=== PATIENT | female | born 1985 | race Caucasian/White ===

== ENCOUNTER 2023-08-18 08:44 | Outpatient (CLI) | payer OTHER, SELFPAY ==
--- NOTE | ~2023-08-18 | US_ITS ---
EXAMINATION: US pelvic complete DATE: 08/18/2023 09:12 INDICATION: Lower abdominal pain. History of cysts. Comparison:No prior studies for comparison. TECHNIQUE: Multiple transabdominal sonographic images of the pelvis performed. FINDINGS: The uterus measures 7.2 x 4.6 x 3.2 cm. The endometrial complex measures 5 mm. The right ovary measures 2.4 x 1.5 x 1.9 cm and the left ovary measures 1.2 x 1.2 x 1.9 cm. There ar e small follicles in each ovary. Normal doppler signal in both ovaries. There is no free fluid in the pelvis. There are no abnormal masses seen on either side. IMPRESSION: 1. Unremarkable pelvic ultrasound. Reviewed, dictated and finalized at location A.
== END 2023-08-18 08:45 ==
PROVIDERS: PCP Hospitalist
DX: R10.30 Lower abdominal pain, unspecified (principal)
CPT/HCPCS: 76856

== ENCOUNTER 2023-12-22 14:43 | Outpatient (CLI) | payer OTHER, SELFPAY ==
--- NOTE | ~2023-12-22 | MM_ITS ---
EXAMINATION: MM screening indira BI w patience HISTORY: Screening TECHNIQUE: Craniocaudal and mediolateral oblique 3-D tomosynthesis images were obtained and synthetic 2-D images were generated. CAD analysis was submitted and interpreted. COMPARISON: No prior mammogram is available for comparison at this institution. BREAST PARENCHYMAL COMPOSITION: There are scattered areas of fibroglandular density. FINDINGS: There is no evidence of suspicious mass, calcification, or architectural distortion to sugg est malignancy in either breast. There has been no suspicious interval change. IMPRESSION: 1. No mammographic evidence of malignancy. 2. Recommend routine screening mammography in one year. BI-RADS Category 1: Negative Reviewed, dictated and finalized at location B.
== END 2023-12-22 14:44 ==
LOC: MICIMG 14:43
PROVIDERS: PCP Hospitalist
DX: Z12.31 Encounter for screening mammogram for malignant neoplasm of breast (principal)
CPT/HCPCS: 77063; 77067

== ENCOUNTER 2024-12-24 14:42 | Outpatient (CLI) | payer OTHER, SELFPAY ==
--- NOTE | ~2024-12-24 | MM_ITS ---
EXAMINATION: MM screening indira BI w patience HISTORY: Screening TECHNIQUE: Craniocaudal and mediolateral oblique 3-D tomosynthesis images were obtained and synthetic 2-D images were generated. CAD analysis was submitted and interpreted. COMPARISON: 12/22/2023. BREAST PARENCHYMAL COMPOSITION: There are scattered areas of fibroglandular density. FINDINGS: There is no evidence of suspicious mass, calcification, or architectural distortion to suggest malignancy in either breast. IMPRESSION: 1. No mammographic evidence of malignancy. 2. Recommend routine screening mammography in one year. BI-RADS Category 1: Negative Reviewed, dictated and finalized at location B.
--- OUTSIDE RECORDS SUMMARY | 2024-12-24 15:00 | XMS_ITS | Clinical Summary ---
Author Organization [facility] Address [address] [place] [address] Care Team Providers Care Environmental Programs Specialist Name Role Phone Ross De Jesus MD Primary Care Provider Source Comments [facility],non-owned Affiliates and Associated Physician Practices is amultiple site organization consisting of ambulatory clinics and hospital sitesin [place], [place], [place] and [place]. This disclosure is being madepursuant to the Care Everywhere program and may not contain all information available regarding this patient. Last updated 18.[facility] Allergies No known active allergies Medications * Be aware that medications may not be up to date on this document. Alwaysverify current medications with the patient. No known medications Family History Medical History Relation Name Comments Hypertension Mother Relation Name Status Comments Mother Social History Tobacco Use Types Packs/Day Years Used Date Smoking Tobacco: Former Cigarettes Smokeless Tobacco: Never Tobacco Cessation:Ready to Q uit: No; Counseling Given: Yes Comments No Sex and Gender Information Value Date Recorded Sex Assigned at Not on file Legal Sex Female 12:02 PM CDT Gender Identity Not on file Sexual Orientation Not on file Last Filed Vital Signs Vital Sign Reading Time Taken Comments Blood Pressure 120/82 06/12/2019 12:05 PM PERSONAL CARE ASSISTANT Pulse 95 06/12/2019 12:05 PM PERSONAL CARE ASSISTANT Temperature 37.5 C (99.5 F) 06/12/2019 12:05 PM PERSONAL CARE ASSISTANT Respiratory Rate 16 06/12/2019 12:05 PM PERSONAL CARE ASSISTANT Oxygen Saturation 99% 06/12/2019 12:05 PM PERSONAL CARE ASSISTANT Inhaled Oxygen Concentration - - Weight 72.6 kg (160 lb) 06/12/2019 12:05 PM PERSONAL CARE ASSISTANT Height 162.6 cm (5' 4) 06/12/2019 12:05 PM PERSONAL CARE ASSISTANT Body Mass Index 27.46 06/12/2019 12:05 PM PERSONAL CARE ASSISTANT Plan of Treatment Health Maintenance Due Date Last Done Comments LIPID TESTING 1983 MAMMOGRAM 1983 HIV SCREENING 1998 HEPATITIS C SCREENING 02/26/2001 DTAP/TDAP/TD VACCINES (1 - Tdap) 2002 HEPATITIS B VACCINE (1 of 3 - 19+ 3-dose series) 2002 HPV VACCINE (1 - 3-dose SCDM series) 2010 COVID-19 VACCINE (1 - 2023-2 5 season) 2024 DEPRESSION SCREENING 05/02/2024 INFLUENZA VACCINE (#1) 2024 ZOSTER VACCINE (1 of 2) 2033 HIB VACCINE Aged Out No longer eligi ble based on patient's age to complete this topic MENINGOCOCCAL (Group B) VACC INE SHARED DECISION-MAKING Aged Out No longer eligibl e based on patient's age to complete this topic MENINGOCOCCAL GROUPS A/C/Y/W VACCINE Aged Out No longer eligible b ased on patient's age to complete this topic PNEUMOCOCCAL VACCINE Aged Out No long er eligible based on patient's age to complete this topic Insurance [facility] Care Teams Environmental Programs Specialist Relationship Specialty Start Date End Date Ross De Jesus MD [address] [place] [address] PCP - General Family Medicine 06/12/19
--- OUTSIDE RECORDS SUMMARY | 2024-12-24 15:00 | XMS_ITS | Clinical Summary ---
Author Organization [facility] Address [address] [place] [address] Care Team Providers Care Junior Net Developer Name Role Phone Sean Stone MD Primary Care Provider [phone] Allergies No known active allergies Medications hydrocortisone 2.5 % cream Apply topically 2 (two) times a day as needed for irritation or rash 90 g 4 Active Active Problems Problem Noted Date Diagnosed Date Bilateral hand numbness 03/20/2024 Other hemorrhoids 02/07/2024 Assessment & Plan (02/07/2024 4:05 PM CDT): Patient reports some symptomatic hemorrhoids without significant bleeding; mostly pain and itching; difficulty with sitting and walking Some straining x1 week Would encourage use of laxatives, continue hydrocortisone 2.5% p.r.n. for symptoms Encounter for colonoscopy du e to history of adenomatous colonic polyps 08/31/2023 Lower abdominal pain 08/16/2023 Assessment & Plan (08/16/2023 3:21 PM CDT): Ongoing low back and pelvic pain Hx of ovarian cysts CT abd/pelvis negative Pelvic US ordered Cyst of ovary 11/10/2021 Diverticulitis 09/20/2018 Assessment & Plan (01/25/2023 9:06 AM CDT): Well controlled; no recent flares of diverticulitis; no further evidence of intra-abdominal abscesses Continue to monitor Postprocedural intraabdominal abscess 08/30/2018 Overview (08/30/2018): Transfer from [facility] for management of a [id number] intra-abdominal abscess. Reports atraumatic, insidious onset of abd pain 10 days ago, progressively worsening. Assessment & Plan (09/14/2018 3:38 PM CDT): Resolving intra-abdominal fluid collection in the pelvis. 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 Last admission her VIR culture grew E-coli and she received cipro/flagyl at discharge. -WBC 9.4 - No antibiotics -VIR consulted 09/14 exchanged abscess drain, moderate amount of fluid remained in the collection. Planning VIR and ACCS follow up on 09/20/18. No antibiotics needed this admission. Abdominal pain resolved prior to discharge and was tolerating a diet. Assessment & Plan (09/05/2018 10:27 AM CDT): Ct abdomen/pelvis 08/28/18: Large complex fluid collection in the lesser sac measuring 11 x10 x 13.7 cm consistent with a large abscess. This may be result of a contained perforation of the stomach or transverse colon. 14 mm high attenuation focus in the hepatic flexure is suspicious for a site of active gastrointestinal bleeding. -IR consult placed for possible percutaneous drain placement -Continue IV Zosyn -UGI/Small bowel follow through 08/31: Mild narrowing at the 3rd portion of the duodenum likely secondary to inflammation/mass effect from the abdominal fluid collection without evidence of gastric or small bowel perforation or leak. -- drain amylase >[id number], IR not interested in drain study, they suggested water soluble enema followed by barium enema. IR placed drain which drained approximate volume of 250 mL at the time of the procedure. The fluid appeared brown and was malodorous - Drain put out approx 300ml over night; brownish output Successful image guided drainage of central abdominal fluid collection --This tube should flushed with 10 mL of saline twice daily --Cultures: Abundant Gram Positive Bacilli Moderate Gram Negative Bacilli Rare Gram Positive Cocci Report Preliminary Report: Moderate Escherichia coli Continuing zosyn at this time 08/31 UGI/SBFT: Mild narrowing at the 3rd portion of the duodenum likely secondary to inflammation/mass effect from the abdominal fluid collection without evidence of gastric or small bowel perforation or leak 09/01: per IR, contrast drain study not an option (cavity to big to pressurize safely); suggest enemas: water soluble followed by barium -NGT placed Plan to obtain a CT with PO contrast CT results : feculent drainage; Zosyn to Erta, IV PPI, CT w/ oral con: 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 Starting clear liquid diet and will monitor the drain output closely. Antibiotics will continue until 09/06. 09/04: ADAT. PLAN: discharged home with a 7 day course of Cipro/ Flagyl for a total of 14 days of antibiotics. She will follow up with IR on 09/20 for a drain check then with ACCS, the drain should be flushed 10 mL BID NS. Will need colonoscopy as outpatient once she is total healed, to schedule with GI fax a prescription to [phone], they will call her with an appointment. Immunizations Immunization Administration Dates Next Due Influenza, Unspecified 01/31/2024(Deferr ed: Patient Refused),08/01/2023(Deferred: Patient Refused),01/30/2023(Deferred: Patient Refused),01/25/2023(Deferred: Patient Refused),01/30/2022(Deferred: Patient Refused),01/30/2022(Deferred: Patient Refused),11/10/2021(Deferred: Not available from bit shaver),01/30/2021,01/31/2020 Tdap 01/25/2023 Surgical History Surgery Date Site/Laterality Comments IMAGE GUIDED DRAINAGE PERITO OG OR RETROPERITONEAL FLUID COLLECTION 08/30/2018 N/A ABSCESS CATHETER INJECTION 09/14/2018 N/A ABSCESS CATHETER INJECTION 09/20/2018 N/A LOOP ELECTROSURGICAL EXCISION PROCEDURE ENDOMETRIAL ABLATION TUBAL LIGATION Medical History Medical History Date Comments Motion sickness Diverticulitis 08/2018 complicated by a bd. abcess GERD (gastroesophageal reflux disease) Colon polyp Family History Medical History Relation Name Comments Depression Father Augustine Heart attack Father Augustine Cancer Father's Sister Shannon Diabetes Maternal Grandfather Lanre Cancer Maternal Grandmother Serenity Hypertension Mother Afua COPD Paternal Grandfather Miguel Cancer Paternal Grandfather Miguel Depression Paternal Grandfather Miguel Cancer Paternal Grandmother Mariela Relation Name Status Comments Father Augustine Alive Father's Sister Shannon Maternal Grandfather Lanre Maternal Grandmother Serenity Mother Afua Alive Paternal Grandfather Miguel Paternal Grandmother Mariela Social History Tobacco Use Types Packs/Day Years Used Date Smoking Tobacco: Former Cigarettes 0.3 15 2 - 2016 Vaping Smokeless Tobacco: Never Tobacco Cessation:Counseling Given: Not Answered Alcohol Use Standard Drinks/Week Comments Not Currently 0 (1 standard drink = 0.6 oz pur e alcohol) occasional AUDIT-C Answer Date Recorded Q1: How often do you have a drink containing alc ohol? Monthly or less 11/10/2021 Q2: How many drinks containi ng alcohol do you have on a typical day when you are drinking? 1 or 2 11/10/2021 Q3: How often do you have si x or more drinks on one occasion? Never 11/10/2021 PHQ-2 Answer Date Recorded PHQ-2 Total Score (If total score is 3 or more points, staff should administer the PHQ-9) 0 01/31/2024 Personal Safety Answer Date Recorded Have you ever been in or are you currently in a harmful physical or emotional relationship or is someone making you feel afraid or unsafe? Denies 09/22/2023 Comments No Sex and Gender Information Value Date Recorded Sex Assigned at Not on file Legal Sex Female 1:02 PM DESK MONITOR Gender Identity Not on file Sexual Orientation Not on file Obstetrics History Last Filed Vital Signs Vital Sign Reading Time Taken Comments Blood Pressure 118/72 09/12/2024 6:20 PM CDT Pulse 125 09/12/2024 6:20 PM CDT Temperature 37 C (98.6 F) 09/12/2024 6:20 PM CDT Respiratory Rate 18 09/12/2024 6:20 PM CDT Oxygen Saturation 99% 09/12/2024 6:20 PM CDT Inhaled Oxygen Concentration - - Weight 64.4 kg (142 lb) 09/12/2024 6:20 PM CDT Height 160 cm (5' 3) 09/12/2024 6:20 PM CDT Body Mass Index 25.15 09/12/2024 6:20 PM CDT Plan of Treatment Health Maintenance Due Date Last Done Comments Varicella Vaccines (1 of 2 - 13+ 2-dose series) 1996 HPV Vaccines (1 - 3-dose SCDM series) 2010 Cervical Cancer Screening 11/13/2021 11/13/2020 Breast Cancer Screening-Mammogram 12/21/2024 12/22/2023 Influenza Vaccine (#1) 2024 01/30/2021, 2019 Depression Screening 01/30/2025 01/31/2024, 08/16/2023, 01/25/2023, Additional history exists Regular Well Visit/Exam 18-64 01/30/2025 01/31/2024, 01/25/2023, 11/10/2021 DTaP/Tdap/Td Vaccine (2 - Td or Tdap) 01/25/2033 01/25/2023 Hepatitis B Screening Completed 01/26/2024 Hepatitis C Screening Completed 01/26/2024 Pneumococcal vaccine <65 Aged Out No longer eligible based on patient's age to complete this topic Procedures Procedure Name Priority Date/Time Associated Diagnosis Comments HEPATITIS C ANTIBODY Routine 01/26/2024 3:56 PM CDT Encounter for hepatitis C screening test for low risk patient MAMMOGRAPHY Routine 12/22/2023 10:43 AM CDT PAP SMEAR WITH HPV Routine 11/13/2020 from Last 3 Months or Most Recently Relevant to Health Maintenance Results * Hepatitis C antibody Blood (01/26/2024 3:56 PM CDT) Hep C Ab Nonreactive Nonreactive Comment: Interpretive Data Nonreactive: Antibodies to HCV not detected. Does NOT exclude the possibility of recent exposure to HCV. Equivocal: Equivocal for HCV antibodies. Supplemental molecular testing will be automatically performed to determine infection status in accordance with current CDC screening recommendations. Reactive: Positive for HCV antibodies. This may represent current or past HCV infection. Supplemental molecular testing will be automatically performed to determine current infection status in accordance with current CDC screening recommendations. Interpretive data was last revised on 2019. Testing performed by: [facility], [address] [place] [address], [place]., [address] Blood 01/26/2024 3:56 PM CDT 01/26/2024 8:41 PM CDT Sean Stone MD LAB MICROBIOLOGY - GENERA L ORDERABLES Final Result [facility]) [address] [facility] Department [place] [address] * HM MAMMOGRAPHY (12/22/2023 10:43 AM CDT) Historical Provider HEALTH MAINTENANCE Edited Result - Final * PAP SMEAR WITH HPV (11/13/2020) Historical Provider HEALTH MAINTENANCE Final Result from Last 3 Months or Most Recently Relevant to Health Maintenance Insurance [facility] [employer] Address: [facility] [address] [place] [address] [facility]O Address: [facility] [id number] [place] [address] Advance Directives For more information, please contact: [phone] * Full Code (Latest Code Status on File) Date Activated Date Inactivated Comments 09/22/2023 1:16 PM 09/22/2023 7:04 PM * Full Code Date Activated Date Inactivated Comments 11/01/2018 8:18 AM 11/01/2018 2:13 PM * Full Code Date Activated Date Inactivated Comments 09/20/2018 12:10 PM 09/20/2018 5:36 PM * Full Code Date Activated Date Inactivated Comments 09/13/2018 8:35 PM 09/14/2018 9:37 PM * Full Code Date Activated Date Inactivated Comments 08/30/2018 1:07 AM 09/05/2018 8:45 PM Healthcare Agents on File Name Relationship Healthcare Agent Relationship Communication Ike Pete Spouse Health Care Agent [email or web address] Care Teams Junior Net Developer Relationship Specialty Start Date End [place] [address] PCP - General Family Medicine 11/10/21
== END 2024-12-24 14:43 | disposition home or self-care (01) ==
LOC: CHSIMG 14:44
PROVIDERS: PCP Hospitalist; Visit Provider Student in an Organized Health Care Education/Training Program
DX: Z12.31 Encounter for screening mammogram for malignant neoplasm of breast (principal)
CPT/HCPCS: 77063; 77067